=== PATIENT | male | born 1975 | race African-American/Black ===

== ENCOUNTER 2021-04-01 00:01 | Emergency (ER) | payer OTHER ==
[~2021-04-01] VITALS: Ht 182.9 cm; Wt 81.7 kg
[~2021-04-01 00:01] MED LIST: MOBIC15 MG PO; RELAFEN750 MG PO; TIZANIDINE HCL4 M1 PO; TRAMADOL 50 MG50 MG PO
[2021-04-01 00:54] LABS: ABSOLUTE NEUTROPHILS 12.3 thou/uL (1.4-8.2); BASOPHILS 0.2 % (0.0-2.0); EOSINOPHILS 0.4 % (0.0-3.0); HEMATOCRIT 42.8 % (42.0-52.0); HEMOGLOBIN 14.6 gm/dL (14.0-18.0); LYMPHOCYTES 14.5 % (24.0-44.0); MCH 33.3 pg (26.0-34.0); MCHC 34.2 g/dL (28.0-37.0); MCV 97.6 fL (80.0-100.0); MONOCYTES 5.2 % (1.0-8.0); PLATELET COUNT 246 thou/uL (150-400); POLYS 79.7 % (36.0-66.0); RBC 4.39 mil/uL (4.50-6.00); RDW 13.4 % (10.5-14.5); WBC 15.5 thou/uL (4.0-11.0)
[2021-04-01 00:57] LABS: CALCIUM 8.6 mg/dL (8.5-10.1); CREATININE 1.3 mg/dL (0.7-1.3); POTASSIUM 3.2 mmol/L (3.5-5.1)
[2021-04-01 01:03] LABS: ALBUMIN 3.8 g/dL (3.4-5.0); TOTAL BILIRUBIN 0.4 mg/dL (0.2-1.0); TOTAL PROTEIN 8.4 g/dL (6.4-8.2)
[2021-04-01] MEDS ORDERED: LISINOPRIL-HCT1 EACH PO (01:39)
[2021-04-01 02:01] LABS: APTT 28.2 Seconds (24.5-32.8); INR 0.95; PROTIME 10.4 Seconds (10.5-12.1)
[2021-04-01 03:21] LABS: URINE BILIRUBIN NEGATIVE (Negative); URINE BLOOD 1+ (Negative); URINE CLARITY CLEAR; URINE COLOR YELLOW; URINE GLUCOSE-RANDOM* NEGATIVE (Negative); URINE KETONES NEGATIVE (Negative); URINE LEUKOCYTES-REFLEX NEGATIVE (Negative); URINE NITRITE-REFLEX NEGATIVE (Negative); URINE PROTEIN (DIPSTICK) NEGATIVE (Negative); URINE UROBILINOGEN 0.2 E.U./dl (0.2-1.0)
[2021-04-01] MEDS ORDERED: PROTONIX40 MG PO (03:26)
[2021-04-01 03:43] VITALS: BP 130/88
[2021-04-01 04:10] LABS: BACTERIA-REFLEX None Seen /HPF (None Seen); CASTS None Seen /LPF (None Seen); CRYSTALS None Seen /LPF (None Seen); MUCUS None Seen strn/LPF (None Seen); SQUAMOUS None Seen /LPF (0-3); URINE RBC None Seen /HPF (NONE SEEN); URINE WBC-REFLEX None Seen /HPF (0-5)
== END 2021-04-01 03:44 | disposition home or self-care (01) ==
LOC: ER 00:01
PROVIDERS: Emergency Medicine
DX: F10.10 Alcohol abuse, uncomplicated (principal); K20.90 Esophagitis, unspecified without bleeding; I10 Essential (primary) hypertension; Z98.890 Other specified postprocedural states; Y90.9 Presence of alcohol in blood, level not specified

== ENCOUNTER 2021-06-17 10:18 | Emergency (ER) | payer OTHER ==
[~2021-06-17] VITALS: Ht 182.9 cm; Wt 92.5 kg
[~2021-06-17 10:18] MED LIST changes: +LISINOPRIL-HCT1 EACH PO; +PROTONIX40 MG PO
[2021-06-17 10:52] LABS: ABSOLUTE NEUTROPHILS 4.5 thou/uL (1.4-8.2); BASOPHILS 0.4 % (0.0-2.0); EOSINOPHILS 0.3 % (0.0-3.0); LYMPHOCYTES 28.9 % (24.0-44.0); MCH 34.1 pg (26.0-34.0); MCHC 34.8 g/dL (28.0-37.0); MCV 97.9 fL (80.0-100.0); MONOCYTES 6.9 % (1.0-8.0); PLATELET COUNT 221 thou/uL (150-400); POLYS 63.5 % (36.0-66.0); RDW 13.6 % (10.5-14.5); WBC 7.2 thou/uL (4.0-11.0)
[2021-06-17 11:01] LABS: ANION GAP 9 mmol/L (7-16); BUN 8 mg/dL (7-18); CALCIUM 8.8 mg/dL (8.5-10.1); CHLORIDE 104 mmol/L (98-107); CO2 26 mmol/L (21-32); CREATININE 1.2 mg/dL (0.7-1.3); GLUCOSE 147 mg/dL (74-106); POTASSIUM 3.5 mmol/L (3.5-5.1); SODIUM 139 mmol/L (136-145)
[2021-06-17 11:11] LABS: ALBUMIN 3.7 g/dL (3.4-5.0); MAGNESIUM 1.9 mg/dL (1.8-2.4); SGOT 24 U/L (15-37); SGPT 27 U/L (30-65); TOTAL BILIRUBIN 0.3 mg/dL (0.2-1.0); TOTAL PROTEIN 7.7 g/dL (6.4-8.2); TROPONIN-I <0.06 ng/mL (<0.06)
[2021-06-17 12:10] VITALS: BP 147/102
--- NOTE | 2021-06-18 14:31 | EKG ---
[place] [address] [facility] [place] [address] ELECTROCARDIOGRAM REPORT Name: PEPITO BAHENA [id number] Admission: 06/17/21 Attend Phys: Discharge: 06/17/21 Date of : 77 Report #: [id number] [facility] ED Test Date: 2021-06-17 Test Time: 10:24:05 Pat Name: PEPITO BAHENA Department: Room: Gender: [employer] Administrator: LINDA : 1975 Requested By: Levon Magana Order Number: [id number] MD: Juanpablo Gore Measurements Intervals [place] Rate: 95 P: 62 TN: 147 QRS: 49 QRSD: 89 T: 70 QT: 368 QTc: 463 Interpretive Statements Sinus rhythm RSR' in V1 or V2, right VCD Compared to ECG 04/12/2007 04:02:19 Right ventricular conduction delay is now present Electronically Signed On 06-18-2021 14:31:12 CDT by Juanpablo Gore [email or web address] <ELECTRONICALLY SIGNED> By: Juanpablo Gore MD, [facility] 06/18/21 1431 [address] [facility] Juanpablo Gore MD, FACC /EPI
== END 2021-06-17 12:12 | disposition home or self-care (01) ==
LOC: ER 10:18
PROVIDERS: Emergency Medicine
DX: R00.2 Palpitations (principal); M79.602 Pain in left arm; I10 Essential (primary) hypertension; F17.210 Nicotine dependence, cigarettes, uncomplicated; Z79.899 Other long term (current) drug therapy